=== PATIENT | female | born 1990 | race Caucasian/White ===

== ENCOUNTER 2021-09-22 09:17 | Outpatient (CLI) | payer OTHER, SELFPAY ==
--- NOTE | 2021-09-22 | ECHO_ITS ---
Patient Info Name: Bebe Hull Age: 31 years : 1990 Gender: Female Ht: 63 in Wt: 208 lbs BSA: 2.09 m2 HR: 102 bpm BP: 132 / 103 mmHg Heart Rhythm: Sinus Rhythm Exam Date: 09/22/2021 10:17 AM Exam Location: [facility] Patient Status: Outpatient Admit Date: 09/22/2021 Staff Ordering Physician: Samantha López MD Parachute Crown Sewer: Oliver Genao RDCS, RT Attending Provider: Samantha López MD Referring Physician: Rene DEL CID; Exam Type: CA echo doppler color flow Study Info Indications I49.8 - Other specified cardiac arrhythmias Complete two-dimensional, color flow and Doppler transthoracic echocardiogram is performed. Strain analysis performed. Summary 1. Complete two-dimensional, color flow and Doppler transthoracic echocardiogram is performed. 2. Left ventricular chamber dimension is normal. 3. Left ventricular systolic function is normal, estimated at 65-70%. 4. There is no increased left ventricular wall thickness. 5. The left ventricular diastolic function is abnormal. 6. Global longitudinal strain is normal at -19 %. 7. There is no aortic valve stenosis. 8. There is no mitral valve regurgitation. Left Ventricle Left ventricular chamber dimension is normal. Left ventricular systolic function is normal, estimated at 65-70%. There is no increased left ventricular wall thickness. The left ventricular diastolic function is abnormal. Global longitudinal strain is normal at -19 %. Right Ventricle Right ventricular chamber dimension is normal. Right ventricular systolic function is normal. Left Atria Left atrial chamber dimension is normal. Right Atria Right atrial chamber dimension is normal. Aortic Valve The aortic valve is probable trileaflet. There is no aortic valve stenosis. There is no aortic valve regurgitation. Pulmonic Valve The pulmonic valve is not well visualized. Mitral Valve The mitral valve has normal leaflets. There is no mitral valve regurgitation. Tricuspid Valve The tricuspid valve leaflets are normal. There is trace tricuspid valve regurgitation. Unable to assess PA systolic pressure due to poor spectral resolution of tricuspid regurgitant jet velocity. Pericardium/Pleural The pericardium appears normal. There is no pericardial effusion. Inferior Vena Cava Normal inferior vena cava with >50% collapse upon inspiration consistent with normal right atrial pressure, 5 mmHg. Aorta The aortic root size at the sinus of Valsalva is normal. Left Ventricular Outflow Tract Name Value Normal LVOT 2D LVOT Diameter 2.1 cm LVOT Doppler LVOT Peak Gradient 3 mmHg LVOT Mean Gradient 2 mmHg LVOT VTI 15 cm LVOT VTI/AV VTI Ratio 0.9 LVOT Stroke Volume 54 ml LVOT CO 6.0 l/min LVOT CI 2.9 l/min/m2 Mitral Valve Name Value N
--- NOTE | 2021-09-22 | ECG_ITS ---
Measurements Intervals [place] Rate: 89 P: 36 WV: 158 QRS: 57 QRSD: 82 T: 5 QT: 330 QTc: 402 Interpretive Statements SINUS RHYTHM NONSPECIFIC T-WAVE ABNORMALITY BORDERLINE ECG NO PREVIOUS ECG AVAILABLE FOR COMPARISON Electronically Signed On 09-23-2021 13:15:02 CDT by Juan Pablo Carrasco M.D.
== END 2021-09-22 09:18 | disposition home or self-care (01) ==
PROVIDERS: PCP Internal Medicine; Visit Provider Obstetrics & Gynecology
DX: I49.9 Cardiac arrhythmia, unspecified (principal); R94.31 Abnormal electrocardiogram [ECG] [EKG]
CPT/HCPCS: 93005; 93306

== ENCOUNTER 2021-12-12 05:49 | Inpatient (IN) | payer BC, SELFPAY ==
--- NOTE | 2021-11-29 15:14 | PC.NURSE ---
11/[address] Lynch spoke with pt stating he has reviewed her previous echo. No concerns for epidural placement noted.
[2021-12-12] VITALS (25 sets, daily range): BP systolic 129–153; BP diastolic 68–100; PULSE 76–105; RESP 16–18; TEMP 36.6–37.4; BMI 38.2
--- OUTSIDE RECORDS SUMMARY | 2021-12-12 05:54 | XMS_ITS | Encounter Summary ---
:1990 Author Care Team Providers Name Role Phone Aydin Lopez MD Primary Care Provider [phone] Reason for Visit None recorded. Assessment and Plan 1. Chronic hypertension complicating AN D/OR reason for care during ? non-stress test Discussion Note: None recorded.Patient educational handouts: No information available. Plan of Care Reminders Provider Appointments Nst 12/19/2021 8:30AM Nst, , EQUIP ? Ob Routine 12/19/2021 9:45AM Samantha López MD ? U/S OB BPP 12/19/2021 9:00AM Ultrasound, TECH ? [facility]-est on or around 06/28/2022 Terrie Betts CNM Lab None recorded. ? ? Referral None recorded. ? ? Procedures None recorded. ? ? Surgeries None recorded. ? ? Imaging Non-stress Test 11/21/2021 [place] Medications Name Start Date ? ? ondansetron 4 mg disintegrating tablet ? DISSOLVE 1 TABLET ON THE TONGUE EVERY 8 HOURS Vitamin ? Tylenol ? Medications Administered None recorded. Vitals None recorded. Results Lab Results None recorded. Allergies Code Code System Name Reaction Severity Onset 5987340 RxNorm Macadamia Nut Oil Anaphylaxis Mild to Moderate ? 367880 RxNorm Peanut Anaphylaxis Mild to Moderate ? NKDA ? ? ? Problems Name Status Onset Date Source ? Active 07/27/2021 ? Cardiac Arrhythmia Active ? ? Chronic Hypertension in Obstetric Context Active ? ? Procedures Date Name Performed by ? 07/28/2012 [place]
--- OUTSIDE RECORDS SUMMARY | 2021-12-12 05:54 | XMS_ITS | Encounter Summary ---
:1990 Author Care Team Providers Name Role Phone Aydin Lopez MD Primary Care Provider [phone] Reason for Visit None recorded. Assessment and Plan 1. Chronic hypertension complicating AN D/OR reason for care during ? US, obstetric, follow-up ? US, obstetric, biophysical profile + non-stress test Discussion Note: None recorded.Patient educational handouts: No information available. Plan of Care Reminders Provider Appointments Nst 12/19/2021 8:30AM Nst, , EQUIP ? Ob Routine 12/19/2021 9:45AM Samantha López MD ? U/S OB BPP 12/19/2021 9:00AM Ultrasound, TECH ? [facility]-est on or around Terrie Betts CNM 06/28/2022 Lab None recorded. ? ? Referral None recorded. ? ? Procedures None recorded. ? ? Surgeries None recorded. ? ? Imaging US, Obstetric, Follow-up 11/21/2021 [place] ? US, Obstetric, 11/21/2021 [place] Biophysical Profile + Non-stress Test Medications Name Start Date ? ? ondansetron 4 mg disintegrating tablet ? DISSOLVE 1 TABLET ON THE TONGUE EVERY 8 HOURS Vitamin ? Tylenol ? Medications Administered None recorded. Vitals None recorded. Results Lab Results None recorded. Allergies Code Code System Name Reaction Severity Onset 0291133 RxNorm Macadamia Nut Oil Anaphylaxis Mild to Moderate ? 704884 RxNorm Peanut Anaphylaxis Mild to Moderate ? NKDA ? ? ? Problems Name Status Onset Date Source ?
--- OUTSIDE RECORDS SUMMARY | 2021-12-12 05:54 | XMS_ITS | Encounter Summary ---
:1990 Author Care Team Providers Name Role Phone Aydin Lopez MD Primary Care Provider [phone] Reason for Visit OB visit Assessment and Plan 1. Chronic hypertension in obstetric co ntext Discussion Note: None recorded.Patient educational handouts: No [...] ? Surgeries None recorded. ? ? Imaging None recorded. ? ? Medications Name Start Date ? ? ondansetron 4 mg disintegrating tablet ? DISSOLVE 1 TABLET ON THE TONGUE EVERY 8 HOURS Vitamin ? Tylenol ? Medications Administered None recorded. Vitals Height Weight BMI Blood Pressure 5 ft 3 in 214 lbs 37.9 kg/m2 138/86 mm[Hg] Results Lab Results None recorded. Allergies Code Code System Name Reaction Severity Onset 0169050 RxNorm Macadamia Nut Oil Anaphylaxis Mild to Moderate ? 147973 RxNorm Peanut Anaphylaxis Mild to Moderate ? NKDA ? ? ? Problems Name Status Onset Date Source ? Active 07/27/2021 ? Cardiac Arrhythmia Active ? ? Chronic Hypertension in Obstetric Context Active ? ? Procedures Date Name Performed by ? 07/28/2012 [facility]
--- OUTSIDE RECORDS SUMMARY | 2021-12-12 05:54 | XMS_ITS | Encounter Summary ---
:1990 Author Care Team Providers Name Role Phone Aydin Lopez MD Primary Care Provider [phone] Reason for Visit OB visit Assessment and [...] BMI Blood Pressure 5 ft 3 in 212 lbs 37.6 kg/m2 137/84 mm[Hg] Results Lab Results None recorded. Allergies Code Code System Name Reaction Severity Onset 7763386 RxNorm Macadamia Nut Oil Anaphylaxis Mild to Moderate ? 336789 RxNorm Peanut Anaphylaxis Mild to Moderate ? NKDA ? ? ? Problems Name Status Onset Date Source ? Active 07/27/2021 ? Cardiac Arrhythmia Active ? ? Chronic Hypertension in Obstetric Context Active ? ? Procedures Date Name Performed by ? 07/28/2012 [facility]
--- OUTSIDE RECORDS SUMMARY | 2021-12-12 05:54 | XMS_ITS ---
:1990 Author Care Team Providers Name Role Phone SHANA MOORE MD Primary Care Provider [phone] Allergies Code Code System Name Reaction Severity Status Onset 1495642 RxNorm Macadamia Nut Oil Anaphylaxis Mild to Moderate Act maxim ? 142933 RxNorm Peanut Anaphylaxis Mild to Moderate Active ? NKDA ? Medications Name Status Start Date Stop Date ? ? ondansetron 4 mg disintegrating tablet Active ? Not available DISSOLVE 1 TABLET ON THE TONGUE EVERY 8 HOURS Vitamin Active ? Not available Tylenol Active ? Not available Problems Name Status Onset Date Source ? Active 07/27/2021 ? Cardiac Arrhythmia Active ? ? Chronic Hypertension in Obstetric Context Active ? ? Procedures Date Name Performed by ? 07/28/2012 [facility] Information not avai lable 02/12/2000 Unlisted Px Foot/toes Information not av ailable 02/12/1996 Tonsilectomy/adenoids Information not av ailable 02/11/1993 Removal of Silastic Tubes from Ear Infor mation not available 06/28/2021 US, Obstetric, Limited [place] [address] [place] [address] ([address]) 07/27/2021 , Obstetric, 2Nd or 3Rd Trimester [facility] [address] [place] [address] (Work Place) 07/27/2021 , Obstetric, Transvaginal [place] [address] [place] [address] (Work Tete
--- OUTSIDE RECORDS SUMMARY | 2021-12-12 05:54 | XMS_ITS | Encounter Summary ---
:1990 Author Care Team Providers Name Role Phone Aydin Lopez MD Primary Care Provider [phone] Reason for Visit None recorded. Assessment and Plan 1. Chronic hypertension complicating AN D/OR reason for care during ? US, obstetric, biophysical profile + non-stress [...] None recorded. ? ? Imaging US, Obstetric, 12/05/2021 [place] Biophysical Profile + Non-stress Test Medications Name Start Date ? ? ondansetron 4 mg disintegrating tablet ? DISSOLVE 1 TABLET ON THE TONGUE EVERY 8 HOURS Vitamin ? Tylenol ? Medications Administered None recorded. Vitals None recorded. Results Lab Results None recorded. Allergies Code Code System Name Reaction Severity Onset 8574102 RxNorm Macadamia Nut Oil Anaphylaxis Mild to Moderate ? 923833 RxNorm Peanut Anaphylaxis Mild to Moderate ? NKDA ? ? ? Problems Name Status Onset Date Source ? Active 07/27/2021 ? Cardiac Arrhythmia Active ? ?
--- OUTSIDE RECORDS SUMMARY | 2021-12-12 05:54 | XMS_ITS | Encounter Summary ---
:1990 Author Care Team Providers Name Role Phone Aydin Lopez MD Primary Care Provider [phone] Reason for Visit None recorded. Assessment and [...] ? Well Woman-est on or around Terrie Btets CNM 06/28/2022 Lab None recorded. ? ? Referral None recorded. ? ? Procedures None recorded. ? ? Surgeries None recorded. ? ? Imaging US, Obstetric, 11/14/2021 [place] Biophysical Profile + Non-stress Test Medications Name Start Date ? ? ondansetron 4 mg disintegrating tablet ? DISSOLVE 1 TABLET ON THE TONGUE EVERY 8 HOURS Vitamin ? Tylenol ? Medications Administered None recorded. Vitals None recorded. Results Lab Results None recorded. Allergies Code Code System Name Reaction Severity Onset 6547135 RxNorm Macadamia Nut Oil Anaphylaxis Mild to Moderate ? 940097 RxNorm Peanut Anaphylaxis Mild to Moderate ? NKDA ? ? ? Problems Name Status Onset Date Source ? Active 07/27/2021 ? Cardiac Arrhythmia Active ? ?
--- OUTSIDE RECORDS SUMMARY | 2021-12-12 05:54 | XMS_ITS | Encounter Summary ---
:1990 Author Care Team Providers Name Role Phone Aydin Lopez MD Primary Care Provider [phone] Reason for Visit None recorded. Assessment and [...] None recorded. ? ? Imaging US, Obstetric, 10/31/2021 [place] Biophysical Profile + Non-stress Test Medications Name Start Date ? ? ondansetron 4 mg disintegrating tablet ? DISSOLVE 1 TABLET ON THE TONGUE EVERY 8 HOURS Vitamin ? Tylenol ? Medications Administered None recorded. Vitals None recorded. Results Lab Results None recorded. Allergies Code Code System Name Reaction Severity Onset 0276488 RxNorm Macadamia Nut Oil Anaphylaxis Mild to Moderate ? 681302 RxNorm Peanut Anaphylaxis Mild to Moderate ? NKDA ? ? ? Problems Name Status Onset Date Source ? Active 07/27/2021 ? Cardiac Arrhythmia Active ? ?
--- OUTSIDE RECORDS SUMMARY | 2021-12-12 05:54 | XMS_ITS | Encounter Summary ---
:1990 Author Care Team Providers Name Role Phone Aydin Lopez MD Primary Care Provider [phone] Reason for Visit OB visit Assessment and Plan 1. Chronic hypertension in obstetric co ntext 2. Cardiac arrhythmia Discussion Note: None recorded.Patient educational handouts: No [...] BMI Blood Pressure 5 ft 3 in 211 lbs 37.4 kg/m2 135/83 mm[Hg] Results Lab Results None recorded. Allergies Code Code System Name Reaction Severity Onset 5394367 RxNorm Macadamia Nut Oil Anaphylaxis Mild to Moderate ? 241041 RxNorm Peanut Anaphylaxis Mild to Moderate ? NKDA ? ? ? Problems Name Status Onset Date Source ? Active 07/27/2021 ? Cardiac Arrhythmia Active ? ? Chronic Hypertension in Obstetric Context Active ? ? Procedures Date Name Performed by ?
--- OUTSIDE RECORDS SUMMARY | 2021-12-12 05:54 | XMS_ITS | Encounter Summary ---
:1990 Author Care Team Providers Name Role Phone Aydin Lopez MD Primary Care Provider [phone] Reason for Visit None recorded. Assessment and [...] recorded. ? ? Imaging US, Obstetric, Follow-up 11/07/2021 [place] ? US, Obstetric, 11/07/2021 [place] Biophysical Profile + Non-stress Test Medications Name Start Date ? ? ondansetron 4 mg disintegrating tablet ? DISSOLVE 1 TABLET ON THE TONGUE EVERY 8 HOURS Vitamin ? Tylenol ? Medications Administered None recorded. Vitals None recorded. Results Lab Results None recorded. Allergies Code Code System Name Reaction Severity Onset 2218668 RxNorm Macadamia Nut Oil Anaphylaxis Mild to Moderate ? 926794 RxNorm Peanut Anaphylaxis Mild to Moderate ? NKDA ? ? ? Problems Name Status Onset Date Source ?
--- OUTSIDE RECORDS SUMMARY | 2021-12-12 05:54 | XMS_ITS | Encounter Summary ---
:1990 Author Care Team Providers Name Role Phone Aydin Lopez MD Primary Care Provider [phone] Reason for Visit None recorded. Assessment and [...] None recorded. ? ? Imaging US, Obstetric, 11/28/2021 [place] Biophysical Profile + Non-stress Test Medications Name Start Date ? ? ondansetron 4 mg disintegrating tablet ? DISSOLVE 1 TABLET ON THE TONGUE EVERY 8 HOURS Vitamin ? Tylenol ? Medications Administered None recorded. Vitals None recorded. Results Lab Results None recorded. Allergies Code Code System Name Reaction Severity Onset 9150202 RxNorm Macadamia Nut Oil Anaphylaxis Mild to Moderate ? 681538 RxNorm Peanut Anaphylaxis Mild to Moderate ? NKDA ? ? ? Problems Name Status Onset Date Source ? Active 07/27/2021 ? Cardiac Arrhythmia Active ? ?
--- OUTSIDE RECORDS SUMMARY | 2021-12-12 05:54 | XMS_ITS | Encounter Summary ---
:1990 Author Care Team Providers Name Role Phone Aydin Lopez MD Primary Care Provider [phone] Reason for Visit None recorded. Assessment and [...] None recorded. ? ? Imaging Non-stress Test 12/05/2021 [place] Medications Name Start Date ? ? ondansetron 4 mg disintegrating tablet ? DISSOLVE 1 TABLET ON THE TONGUE EVERY 8 HOURS Vitamin ? Tylenol ? Medications Administered None recorded. Vitals None recorded. Results Lab Results None recorded. Allergies Code Code System Name Reaction Severity Onset 5430046 RxNorm Macadamia Nut Oil Anaphylaxis Mild to Moderate ? 554959 RxNorm Peanut Anaphylaxis Mild to Moderate ? NKDA ? ? ? Problems Name Status Onset Date Source ? Active 07/27/2021 ? Cardiac Arrhythmia Active ? ? Chronic Hypertension in Obstetric Context Active ? ? Procedures Date Name Performed by ? 07/28/2012 [place]
--- OUTSIDE RECORDS SUMMARY | 2021-12-12 05:54 | XMS_ITS | Encounter Summary ---
:1990 Author Care Team Providers Name Role Phone Aydin Lopez MD Primary Care Provider [phone] Reason for Visit OB visit Assessment and [...] ft 3 in 212 lbs 37.6 kg/m2 134/84 mm[Hg] Results Lab Results None recorded. Allergies Code Code System Name Reaction Severity Onset 8597636 RxNorm Macadamia Nut Oil Anaphylaxis Mild to Moderate ? 182194 RxNorm Peanut Anaphylaxis Mild to Moderate ? NKDA ? ? ? Problems Name Status Onset Date Source ? Active 07/27/2021 ? Cardiac Arrhythmia Active ? ? Chronic Hypertension in Obstetric Context Active ? ? Procedures Date Name Performed by ? 07/28/2012 [facility]
--- OUTSIDE RECORDS SUMMARY | 2021-12-12 05:54 | XMS_ITS | Encounter Summary ---
:1990 Author Care Team Providers Name Role Phone Aydin Lopez MD Primary Care Provider [phone] Reason for Visit None recorded. Assessment and [...] None recorded. ? ? Imaging Non-stress Test 11/28/2021 [place] Medications Name Start Date ? ? ondansetron 4 mg disintegrating tablet ? DISSOLVE 1 TABLET ON THE TONGUE EVERY 8 HOURS Vitamin ? Tylenol ? Medications Administered None recorded. Vitals None recorded. Results Lab Results None recorded. Allergies Code Code System Name Reaction Severity Onset 7976939 RxNorm Macadamia Nut Oil Anaphylaxis Mild to Moderate ? 718270 RxNorm Peanut Anaphylaxis Mild to Moderate ? NKDA ? ? ? Problems Name Status Onset Date Source ? Active 07/27/2021 ? Cardiac Arrhythmia Active ? ? Chronic Hypertension in Obstetric Context Active ? ? Procedures Date Name Performed by ? 07/28/2012 [place]
--- OUTSIDE RECORDS SUMMARY | 2021-12-12 05:54 | XMS_ITS | Encounter Summary ---
:1990 Author Care Team Providers Name Role Phone Aydin Lopez MD Primary Care Provider [phone] Reason for Visit None recorded. Assessment and [...] None recorded. ? ? Imaging Non-stress Test 10/31/2021 [place] Medications Name Start Date ? ? ondansetron 4 mg disintegrating tablet ? DISSOLVE 1 TABLET ON THE TONGUE EVERY 8 HOURS Vitamin ? Tylenol ? Medications Administered None recorded. Vitals None recorded. Results Lab Results None recorded. Allergies Code Code System Name Reaction Severity Onset 7260563 RxNorm Macadamia Nut Oil Anaphylaxis Mild to Moderate ? 868708 RxNorm Peanut Anaphylaxis Mild to Moderate ? NKDA ? ? ? Problems Name Status Onset Date Source ? Active 07/27/2021 ? Cardiac Arrhythmia Active ? ? Chronic Hypertension in Obstetric Context Active ? ? Procedures Date Name Performed by ? 07/28/2012 [place]
--- OUTSIDE RECORDS SUMMARY | 2021-12-12 05:54 | XMS_ITS | Encounter Summary ---
:1990 Author Care Team Providers Name Role Phone Aydin Lopez MD Primary Care Provider [phone] Reason for Visit OB visit Assessment and [...] BMI Blood Pressure 5 ft 3 in 215 lbs 38.1 kg/m2 139/88 mm[Hg] Results Lab Results None recorded. Allergies Code Code System Name Reaction Severity Onset 9346153 RxNorm Macadamia Nut Oil Anaphylaxis Mild to Moderate ? 335608 RxNorm Peanut Anaphylaxis Mild to Moderate ? NKDA ? ? ? Problems Name Status Onset Date Source ? Active 07/27/2021 ? Cardiac Arrhythmia Active ? ? Chronic Hypertension in Obstetric Context Active ? ? Procedures Date Name Performed by ? 07/28/2012 [facility]
--- OUTSIDE RECORDS SUMMARY | 2021-12-12 05:54 | XMS_ITS | Encounter Summary ---
:1990 Author Care Team Providers Name Role Phone Aydin Lopez MD Primary Care Provider [phone] Reason for Visit OB visit Assessment and [...] BMI Blood Pressure 5 ft 3 in 217 lbs 38.4 kg/m2 141/88 mm[Hg] Results Lab Results None recorded. Allergies Code Code System Name Reaction Severity Onset 8109930 RxNorm Macadamia Nut Oil Anaphylaxis Mild to Moderate ? 491645 RxNorm Peanut Anaphylaxis Mild to Moderate ? NKDA ? ? ? Problems Name Status Onset Date Source ? Active 07/27/2021 ? Cardiac Arrhythmia Active ? ? Chronic Hypertension in Obstetric Context Active ? ? Procedures Date Name Performed by ? 07/28/2012 [facility]
--- OUTSIDE RECORDS SUMMARY | 2021-12-12 05:54 | XMS_ITS | Encounter Summary ---
:1990 Author Care Team Providers Name Role Phone Aydin Lopez MD Primary Care Provider [phone] Reason for Visit OB visit Assessment and [...] ft 3 in 211 lbs 37.4 kg/m2 137/82 mm[Hg] Results Lab Results None recorded. Allergies Code Code System Name Reaction Severity Onset 7101567 RxNorm Macadamia Nut Oil Anaphylaxis Mild to Moderate ? 247757 RxNorm Peanut Anaphylaxis Mild to Moderate ? NKDA ? ? ? Problems Name Status Onset Date Source ? Active 07/27/2021 ? Cardiac Arrhythmia Active ? ? Chronic Hypertension in Obstetric Context Active ? ? Procedures Date Name Performed by ? 07/28/2012 [facility]
--- OUTSIDE RECORDS SUMMARY | 2021-12-12 05:54 | XMS_ITS | Encounter Summary ---
:1990 Author Care Team Providers Name Role Phone Aydin Lopez MD Primary Care Provider [phone] Reason for Visit None recorded. Assessment and [...] None recorded. ? ? Imaging Non-stress Test 11/07/2021 [place] Medications Name Start Date ? ? ondansetron 4 mg disintegrating tablet ? DISSOLVE 1 TABLET ON THE TONGUE EVERY 8 HOURS Vitamin ? Tylenol ? Medications Administered None recorded. Vitals None recorded. Results Lab Results None recorded. Allergies Code Code System Name Reaction Severity Onset 5050771 RxNorm Macadamia Nut Oil Anaphylaxis Mild to Moderate ? 686583 RxNorm Peanut Anaphylaxis Mild to Moderate ? NKDA ? ? ? Problems Name Status Onset Date Source ? Active 07/27/2021 ? Cardiac Arrhythmia Active ? ? Chronic Hypertension in Obstetric Context Active ? ? Procedures Date Name Performed by ? 07/28/2012 [facility]
--- OUTSIDE RECORDS SUMMARY | 2021-12-12 05:54 | XMS_ITS | Encounter Summary ---
:1990 Author Care Team Providers Name Role Phone Aydin Lopez MD Primary Care Provider [phone] Reason for Visit None recorded. Assessment and [...] None recorded. ? ? Imaging Non-stress Test 11/14/2021 [place] Medications Name Start Date ? ? ondansetron 4 mg disintegrating tablet ? DISSOLVE 1 TABLET ON THE TONGUE EVERY 8 HOURS Vitamin ? Tylenol ? Medications Administered None recorded. Vitals None recorded. Results Lab Results None recorded. Allergies Code Code System Name Reaction Severity Onset 8516750 RxNorm Macadamia Nut Oil Anaphylaxis Mild to Moderate ? 376099 RxNorm Peanut Anaphylaxis Mild to Moderate ? NKDA ? ? ? Problems Name Status Onset Date Source ? Active 07/27/2021 ? Cardiac Arrhythmia Active ? ? Chronic Hypertension in Obstetric Context Active ? ? Procedures Date Name Performed by ? 07/28/2012 [place]
--- OUTSIDE RECORDS SUMMARY | 2021-12-12 05:55 | XMS_ITS | Encounter Summary ---
:1990 Author Care Team Providers Name Role Phone Aydin Lopez MD Primary Care Provider [phone] Reason for Visit OB visit Assessment and Plan 1. Routine care 2. Elevated blood-pressure reading with out diagnosis of hypertension Discussion Note: None recorded.Patient educational handouts: No [...] BMI Blood Pressure 5 ft 3 in 210 lbs 37.2 kg/m2 (1) 160/90 mm[H g] (2) 142/82 mm[Hg ] Results Lab Results None recorded. Allergies Code Code System Name Reaction Severity Onset 6475986 RxNorm Macadamia Nut Oil Anaphylaxis Mild to Moderate ? 407565 RxNorm Peanut Anaphylaxis Mild to Moderate ? NKDA ? ? ? Problems Name Status Onset Date Source ? Active 07/27/2021 ? Cardiac Arrhythmia Active ? ? Chronic Hypertension in Obstetric Context Active ?
--- OUTSIDE RECORDS SUMMARY | 2021-12-12 05:55 | XMS_ITS | Encounter Summary ---
:1990 Author Care Team Providers Name Role Phone Aydin Lopez MD Primary Care Provider [phone] Reason for Visit None recorded. Assessment and [...] None recorded. ? ? Imaging Non-stress Test 10/24/2021 [place] Medications Name Start Date ? ? ondansetron 4 mg disintegrating tablet ? DISSOLVE 1 TABLET ON THE TONGUE EVERY 8 HOURS Vitamin ? Tylenol ? Medications Administered None recorded. Vitals None recorded. Results Lab Results None recorded. Allergies Code Code System Name Reaction Severity Onset 2253441 RxNorm Macadamia Nut Oil Anaphylaxis Mild to Moderate ? 065785 RxNorm Peanut Anaphylaxis Mild to Moderate ? NKDA ? ? ? Problems Name Status Onset Date Source ? Active 07/27/2021 ? Cardiac Arrhythmia Active ? ? Chronic Hypertension in Obstetric Context Active ? ? Procedures Date Name Performed by ? 07/28/2012 [place]
--- OUTSIDE RECORDS SUMMARY | 2021-12-12 05:55 | XMS_ITS | Encounter Summary ---
:1990 Author Care Team Providers Name Role Phone Aydin Lopez MD Primary Care Provider [phone] Reason for Visit OB visit Assessment and [...] ft 3 in 211 lbs 37.4 kg/m2 (1) 150/70 mm[H g] (2) 142/78 mm[Hg ] Results Lab Results None recorded. Allergies Code Code System Name Reaction Severity Onset 2500650 RxNorm Macadamia Nut Oil Anaphylaxis Mild to Moderate ? 255257 RxNorm Peanut Anaphylaxis Mild to Moderate ? NKDA ? ? ? Problems Name Status Onset Date Source ? Active 07/27/2021 ? Cardiac Arrhythmia Active ? ? Chronic Hypertension in Obstetric Context Active ? ? Procedures Date Name
--- OUTSIDE RECORDS SUMMARY | 2021-12-12 05:55 | XMS_ITS ---
:1990 Author Care Team Providers Name Role Phone ALIYA JACINTO MD Primary Care Provider [phone] Allergies Code Code System Name Reaction Severity Status Onset 906962 RxNorm Trileptal Hives ? Active ? Medications Name Status Start Date Stop Date ? ? lorazepam 0.5 mg tablet Active ? Not avai lable oxcarbazepine 300 mg tablet Active ? Not available prednisone 20 mg tablet Active ? Not avai lable Take 40 mg PO everyday for 5 days venlafaxine ER 150 mg capsule,extended release 24 hr Active ? Not available venlafaxine ER 75 mg capsule,extended release 24 hr Active ? Not available Problems None recorded. Procedures Notes: none Results Lab Results None recorded. Past Encounters None recorded. Social History Tobacco Smoking Status Never Smoker Vaccine List None recorded. Plan of Care Reminders Provider Appointments None recorded. ? ? Lab None recorded. ? ? Referral None recorded. ? ? Procedures None recorded. ? ? Surgeries None recorded. ? ? Imaging None recorded. ? ? Vitals Height Weight BMI Blood Pressure 5 ft 3 in 207 lbs 36.7 kg/m2 150/97 mm[Hg]
--- OUTSIDE RECORDS SUMMARY | 2021-12-12 05:55 | XMS_ITS | Encounter Summary ---
:1990 Author Care Team Providers Name Role Phone Aydin Lopez MD Primary Care Provider [phone] Reason for Visit None recorded. Assessment and [...] recorded. ? ? Imaging US, Obstetric, Follow-up 10/24/2021 [place] ? US, Obstetric, 10/24/2021 [place] Biophysical Profile + Non-stress Test Medications Name Start Date ? ? ondansetron 4 mg disintegrating tablet ? DISSOLVE 1 TABLET ON THE TONGUE EVERY 8 HOURS Vitamin ? Tylenol ? Medications Administered None recorded. Vitals None recorded. Results Lab Results None recorded. Allergies Code Code System Name Reaction Severity Onset 4931184 RxNorm Macadamia Nut Oil Anaphylaxis Mild to Moderate ? 492633 RxNorm Peanut Anaphylaxis Mild to Moderate ? NKDA ? ? ? Problems Name Status Onset Date Source ?
[2021-12-12 07:13] LABS: Basophils Absolute Auto 0.1 K/mm3 (0.0-0.1); Basophils Percent Auto 0.6 % (0.2-1.2); Eosinophils Absolute Auto 0.1 K/mm3 (0-0.3); Eosinophils Percent Auto 0.6 % (0-4.4); Hematocrit 33.5 % (37.0-47.0); Hemoglobin 11.5 g/dL (12.0-15.0); Immature Granulocyte Absolute 0.16 K/mm3 (0.00-0.031); Immature Granulocyte Percent A 1.5 % (0-0.5); Lymphocytes Absolute Auto 2.81 K/mm3 (0.9-3.2); Lymphocytes Percent Auto 25.7 % (18.3-44.2); Mean Corpuscular HGB Conc 34.3 g/dl (32-36); Mean Corpuscular Hemoglobin 29.9 pg (26-34); Mean Platelet Volume 13.7 fl (7.4-10.4); Monocytes Absolute Auto 0.7 K/mm3 (0.1-0.6); Monocytes Percent Auto 6.3 % (2.6-8.5); Neutrophils Absolute Auto 7.1 K/mm3 (1.3-6.7); Neutrophils Percent Auto 65.3 % (45.5-73.1); Platelet Count Result 152 k/mm3 (150-375); Red Blood Count 3.85 M/mm3 (4.2-5.4); White Blood Count 10.9 K/mm3 (4.5-10.0)
[2021-12-12 07:21] LABS: Alanine Aminotransferase 21 U/L (6-35); Albumin Level 3.5 g/dL (3.5-5.1); Alkaline Phosphatase 170 U/L (38-126); Anion Gap 10 mmol/L (8-16); Aspartate Amino Transferase 24 U/L (14-36); Bilirubin,Total 0.3 mg/dL (0.2-1.3); Blood Urea Nitrogen 3 mg/dL (7-17); Calcium 8.6 mg/dL (8.4-10.2); Carbon Dioxide 24 mmol/L (22-30); Chloride 105 mmol/L (98-107); Estimated Glomerular Filt Rate > 60; Glucose 86 mg/dL (65-110); Potassium 3.2 mmol/L (3.4-5.0); Sodium 139 mmol/L (137-145); Uric Acid 4.1 mg/dL (2.5-7.5)
[2021-12-12] MEDS: DINOPROSTONE 10 MG VAG INSERT VAGINAL (07:21)
--- NOTE | 2021-12-12 07:39 | P.HP_ITS ---
H&P: HPI History of Present Illness Date/Time: 12/12/21 07:39 Chief Complaint: induction of labor Narrative: Bebe is a 31yo G1 at 38.6 for IOL for cHTN, no meds. Also has arrhythmia/ectopic pacemaker cells, has seen cardiology and they did not recommend any interventions or additional followup. BPs have been great this . Some anxiety also. GBS neg. Cervidil just placed. GBS neg. Review of Systems Review of Systems: All systems reviewed & are unremarkable except as noted in HPI and below [facility] Family History Family History (Updated 11/29/21 @ 14:45 by Nelia Casanova RN) Father Hypertension Diabetes mellitus Grandparent Diabetes mellitus Social History Social History Substance use: never Spiritual care concerns: No Meds Home Medications and Allergies Home Medications Medication Instructions Recorded Confirmed Type aspirin 81 mg tablet 162 mg PO DAILY 11/29/21 11/29/21 History prenat.vits,stephanie,[id number] 1 tablet PO HS 11/29/21 11/29/21 History Allergies Allergy/AdvReac Type Severity Reaction Status Date / Time latex Allergy Rash Verified 11/29/21 15:55 macadamia nut oil Allergy Swelling Verified 11/29/21 14:41 of Lip/Tongue/Throat peanut Allergy Swelling Verified 11/29/21 14:41 of Lip/Tongue/Throat Vital Signs Vital Signs - 24 hr 12/12/21 07:02 12/12/21 07:16 12/12/21 07:31 Pulse Rate 105 H 103 H 88 Blood Pressure 147/100 H 140/88 135/82 Exam Const: General: no acute distress Resp: Effort & Inspection: normal respiratory effort Auscultation: clear to auscultation bilaterally Cardio: Rate: regular rate Rhythm: regular rhythm GI: GI Palp: Yes Soft to palpation Extrem: General: normal to inspection H&P: Results Labs Labs: Short CBC 12/12/21 Range/Units 07:05 WBC 10.9 H (4.5-10.0) K/mm3 Hgb 11.5 L (12.0-15.0) g/dL Hct 33.5 L (37.0-47.0) % Plt Count 152 (150-375) k/mm3 BMP 12/12/21 07:05 Sodium 139 Potassium 3.2 L Chloride 105 Carbon Dioxide 24 BUN 3 L Creatinine 0.60 L Glucose 86 Calcium 8.6 Liver Function 12/12/21 Range/Units 07:05 Total Bilirubin 0.3 (0.2-1.3) mg/dL AST 24 (14-36) U/L ALT 21 (6-35) U/L Alkaline Phosphatase 170 H (38-126) U/L Albumin 3.5 (3.5-5.1) g/dL Assessment and Plan Assessment and plan (1) Chronic hypertension affecting : Code(s): O10.919 - Unspecified pre-existing hypertension complicating , unspecified trimester Status: Acute (2) Encounter for induction of labor: Code(s): Z34.90 - Encounter for supervision of normal , unspecified, unspecified trimester Status: Acute Plan cervidil then pitocin GBS neg BPS stable- no meds normal PIH labs FHT category 1
--- NOTE | 2021-12-12 07:45 | LDADM ---
This patient, Bebe Hull, was admitted to Labor/Delivery/Recovery 104 on 12/12/21 at 05:49. Plans for labor, pain management and were discussed with patient. Patient/family oriented to hospital policies and general routines including ID bracelet, bed and alarms, visiting hours, pain management, procedures, bathroom and other care routines, personal items, smoking policy, room service/diet and guest tray routines, security routines, and visiting hours. Patient/Family are encouraged to report perceived risks to care and to ask questions if they do not understand what they are told or what they should do. See OBIX for further documentation.
[2021-12-12 16:28] LABS: Rapid Plasma Reagin Non-Reactive (NonReactive)
--- NOTE | 2021-12-12 17:32 | WPDANESEPP ---
Anes - Eval Pre Procedure Procedure: Labor Epidural Date/Time: 12/12/21 17:32 Surgeon: Rene Preop Diagnosis: Abd pain with contractions Pre Op Diagnosis: IOL Patient Data Age: 31 Gender: F Height: 1.6 m Weight: 98 kg Last Vital Signs Temp 97.9 F 12/12/21 07:30 Pulse 91 12/12/21 13:19 BP 145/90 H 12/12/21 13:19 O2 Del Method Room Air 12/12/21 07:37 Allergies Allergy/AdvReac Type Severity Reaction Status Date / Time latex Allergy Rash Verified 11/29/21 15:55 macadamia nut oil Allergy Swelling Verified 11/29/21 14:41 of Lip/Tongue/Throat peanut Allergy Swelling Verified 11/29/21 14:41 of Lip/Tongue/Throat Home Medications Medication Instructions Recorded Confirmed Type aspirin 81 mg tablet 162 mg PO DAILY 11/29/21 11/29/21 History prenat.vits,stephanie,[id number] 1 tablet PO HS 11/29/21 11/29/21 History Laboratory Tests 12/12/21 12/12/21 12/12/21 07:05 07:05 07:05 WBC 10.9 K/mm3 H K/mm3 (4.5-10.0) RBC 3.85 M/mm3 L M/mm3 (4.2-5.4) Hgb 11.5 g/dL L g/dL (12.0-15.0) Hct 33.5 % L % (37.0-47.0) MCV 87.0 fl fl (80-100) MCH 29.9 pg pg (26-34) MCHC 34.3 g/dl g/dl (32-36) RDW 13.0 % % (11.5-14.5) Plt Count 152 k/mm3 k/mm3 (150-375) MPV 13.7 fl H fl (7.4-10.4) Immature Gran % (Auto) 1.5 % H % (0-0.5) Neut % (Auto) 65.3 % % (45.5-73.1) Lymph % (Auto) 25.7 % % (18.3-44.2) [place] % (Auto) 6.3 % % (2.6-8.5) Eos % (Auto) 0.6 % % (0-4.4) Baso % (Auto) 0.6 % % (0.2-1.2) Lymph # (Auto) 2.81 K/mm3 K/mm3 (0.9-3.2) [place] # (Auto) 0.7 K/mm3 H K/mm3 (0.1-0.6) Eos # (Auto) 0.1 K/mm3 K/mm3 (0-0.3) Baso # (Auto) 0.1 K/mm3 K/mm3 (0.0-0.1) Abs Immat Gran (auto) 0.16 K/mm3 H K/mm3 (0.00-0.031) Absolute Neuts (auto) 7.1 K/mm3 H K/mm3 (1.3-6.7) Absolute Nucleated RBC 0.0 K/mm3 K/mm3 (0.0-0.012) Nucleated RBC % 0.0 % % (0.0-0.2) % Immature Plt Fraction 21.0 % H % (0.9-11.2) Sodium Potassium Chloride Carbon Dioxide Anion Gap BUN Creatinine Estim Creat Clear Calc Estimated GFR Glucose Uric Acid Cancelled Calcium Total Bilirubin AST ALT Alkaline Phosphatase Total Protein Albumin RPR Non-reactive (NonReactive) Blood Type Antibody Screen 12/12/21 12/12/21 07:05 07:05 WBC RBC Hgb Hct MCV MCH MCHC RDW Plt Count MPV Immature Gran % (Auto) Neut % (Auto) Lymph % (Auto) [place] % (Auto) Eos % (Auto) Baso % (Auto) Lymph # (Auto) [place] # (Auto) Eos # (Auto) Baso # (Auto) Abs Immat Gran (auto) Absolute Neuts (auto) Absolute Nucleated RBC Nucleated RBC % % Immature Plt Fraction Sodium 139 mmol/L mmol/L (137-145) Potassium 3.2 mmol/L L mmol/L (3.4-5.0) Chloride 105 mmol/L mmol/L (98-107) Carbon Dioxide 24 mmol/L mmol/L (22-30) Anion Gap 10 mmol/L mmol/L (8-16) BUN 3 mg/dL L mg/dL (7-17) Creatinine 0.60 mg/dL L mg/dL (0.7-1.0) Estim Creat Clear Calc Not Reportable Estimated GFR > 60 (59 - ) Glucose 86 mg/dL mg/dL (65-110) Uric Acid 4.1 mg/dL mg/dL (2.5-7.5) Calcium 8.6 mg/dL mg/dL (8.4-10.2) Total Bilirubin 0.3 mg/dL mg/dL (0.2-1.3) AST 24 U/L U/L (14-36) ALT 21 U/L U/L (6-35) Alkaline Phosp
[2021-12-12] MEDS: LACTATED RINGERS 1,000 ML 125 ML IV CONT (20:04)
[2021-12-12] MEDS: miSOPROStol 25 MCG TABLET VAGINAL (20:55)
[2021-12-12] MEDS: ACETAMINOPHEN 500 MG TABLET 1000 MG PO (21:34)
[2021-12-13] VITALS (296 sets, daily range): BP systolic 82–167; BP diastolic 38–95; PULSE 58–147; TEMP 36.4–37.9; O2SAT 90–100
[2021-12-13] MEDS: OXYTOCIN 30 UNITS/NS 500 ML 30 UNITS/500 ML BAG IV CONT (01:40)
[2021-12-13] MEDS: LACTATED RINGERS 1,000 ML 125 ML IV CONT ×4 (01:40→23:24)
--- NOTE | 2021-12-13 07:33 | PM.OBPNLAB ---
Pain Control Date/time seen: 12/13/21 07:33 Comments: getting uncomfortable. Pelvic Exam Dilation (cm): 1 Effacement (%): 50 Amniotic membrane status: Ruptured Comments: AROM clear Contractions Contraction pattern: Irregular Contraction intensity: Moderate Status status: Category l Assessment and Plan Assessment: induction ongoing Plan: continuous present management
[2021-12-13] MEDS: ONDANSETRON INJ 4 MG/2 ML VIAL IV PUSH ×2 (14:27→21:10)
[2021-12-13] MEDS: PHENYLEPHRINE 1,000 MCG/10 ML SYRINGE 100 MCG IV PUSH ×3 (16:05→16:18)
[2021-12-13] MEDS: ACETAMINOPHEN 500 MG TABLET 1000 MG PO (20:34)
[2021-12-13] MEDS: AMPICILLIN 2 GM/NS 100 ML 2 GM/100 ML BAG IVPB (20:34)
[2021-12-14] VITALS (89 sets, daily range): BP systolic 113–154; BP diastolic 58–110; PULSE 55–269; RESP 18; TEMP 36.3–37.7; O2SAT 75–100
[2021-12-14] MEDS: LACTATED RINGERS 1,000 ML 125 ML IV CONT (00:47)
[2021-12-14] MEDS: AMPICILLIN 1 GM/NS 50 ML 1 GM/50 ML BAG IVPB ×6 (00:48→23:01)
[2021-12-14] MEDS: OXYTOCIN 30 UNITS/NS 500 ML 30 UNITS/500 ML BAG IV CONT (00:52)
[2021-12-14] MEDS: CALCIUM CARBONATE (TUMS) 500 MG (200 MG ELEMENTAL) PO (04:20)
--- NOTE | 2021-12-14 05:41 | PM.OBPRVD ---
OB - Delivery Note Procedure Delivery date: 12/14/21 Procedure: Events: Chronic Hypertension Induction method: AROM, Per Misoprostol Protocol, Per Pitocin Protocol and Per Cervidil Protocol Delivery monitor: External FHT and Internal Uterine Route of delivery: Laceration Description: Perineal - 2nd Degree Delivery repair: vicryl Specimen: No Quantitative Blood Loss (ml): 240 Anesthesia type: Epidural Disposition: Floor Narrative: With adequate expulsive efforts by the mother, the baby's head was delivered OA. The baby's anterior shoulder was delivered under the pubic symphysis without difficulty. The posterior shoulder and the rest of the baby delivered without difficulty. The was placed on the mothers chest and suctioned and stimulated. The cord was clamped and cut after 30 seconds. Mother and baby both stable. [place] Baby Date of : 12/14/21 Time of : 05:15 Weeks of gestation at delivery: 38 Infant gender: Male Weight (pounds): 6 Weight (ounces): 14 presentation: vertex Placenta delivery description: Spontaneous Cord Vessel Description: 3 Vessels, Nuchal Cord and Delayed Cord Clamping score one minute: 8 score five minutes: 9
[2021-12-14] MEDS: OXYTOCIN 30 UNITS/NS 500 ML 30 UNITS/500 ML BAG 125 UNITS IV CONT (05:43)
[2021-12-14] MEDS: IBUPROFEN 600 MG TABLET PO ×2 (07:53→18:50)
[2021-12-14] MEDS: WITCH HAZEL 40 PADS 1 PAD TOPICAL (08:03)
[2021-12-14] MEDS: BENZOCAINE 20% AER SPR (*SP) 56 GM CAN 1 SPRAY TOPICAL (08:03)
--- NOTE | 2021-12-14 11:56 | PC.NURSE ---
[id number] Introductions were made, then consulted with patient to assess needs related to after RN was called to the room. Mother led the conversation with her?plans to feed?her infant and the?experience so far. Resources provided for inpatient and outpatient services using a resource guide and mom/baby guide. is skin to skin. Mother works well with her with encouragement and education. Mother was encouraged to massage touch and change infants position to stimulate for . Encouraged understanding of the benefits of skin to skin (unwrapping and placing vertically on her chest), responsive feeding and how to watch for early feeding signs, frequency of feeding on demand about every 8-12 times in 24 hours (every 2-3 hours), milk production, duration of feeding, signs of adequate intake/output and how to record on the feeding sheet. Reviewed positioning and ear, shoulder, hip alignment, supporting the breast, asymmetrical latch (off-center), and leading with the chin with a big open side gape using the football position and a sandwich hold to the breast. Infant latched optimally to the left breast in football position for a few sucks, then fell asleep. The infant's tongue appears to be held tight with the sublingual frenulum. Encouraged mother to have a discussion with the Animal Keeper if there is pain with or if doesn't maintain latch. During the few sucks RN was able to education mother of how to visualize suck/swallow ratios and drinking at the breast. Nipple care reviewed with optimal latch and good positioning. Parents were taught the skills of hand expressing colostrum and infant was syringe fed the first milk with rewarding sucking on a gloved finger. Reviewed good handwashing when or touching the breast/nipples to prevent infection. Reviewed using the pie demonstration of how to know if their was getting enough and how hypoplasia may play a role in decreased milk production learning supply and demand frequently removing milk from the breast with effective , hand expression and/or pumping to encourage a milk supply. Resources used to facilitate learning were used with the tool and the mom/baby guide. Mother voiced understanding of responsive feedings, stimulating with skin to skin, hand expressed colostrum, touch, talking to infant to encourage if it has been 2 -3 hours since the start of the last , to call if does not latch or there is discomfort with . Reported to the primary RN.
--- NOTE | 2021-12-15 02:18 | PC.NURSE ---
Charlie Graf RN gave 3rd Bag of Gentamicin at 1400 on 12/14/21 but was not documented as such. Patient received all 4 bags of Gent.
[2021-12-15] MEDS: AMPICILLIN 1 GM/NS 50 ML 1 GM/50 ML BAG IVPB ×5 (03:03→22:00)
[2021-12-15] MEDS: IBUPROFEN 600 MG TABLET PO ×2 (03:31→21:58)
[2021-12-15 05:33] LABS: Hematocrit 26.1 % (37.0-47.0); Hemoglobin 8.5 g/dL (12.0-15.0)
--- NOTE | 2021-12-15 08:09 | PM.OBPNVD ---
OB - PN: Subj Subjective Date/time seen: 12/15/21 08:09 s/p vaginal delivery day 1 OB - PN: Obj Data Labs CBC & Chem 7: 12/15/21 03:39 12/12/21 07:05 Labs: Laboratory Results - last 24 hr 12/15/21 03:39 Hgb 8.5 L D Hct 26.1 L OB - PN A/P Plan day: 1 Plan: routine care Time Spent With Patient Time: Total time spent is greater than 50% in coordination of care (as documented) at patient's floor/unit and/or counseling patient: Review of Systems Review of Systems: All systems reviewed & are unremarkable except as noted in HPI and below Exam Const: General: cooperative, healthy appearing and comfortable
[2021-12-15 08:10] VITALS: BP 121/70; PULSE 82; RESP 16; TEMP 36.2; O2SAT 99
[2021-12-15] MEDS: POLYSACCHARIDE IRON COMPLEX 150 MG CAPSULE PO ×2 (09:08→16:45)
[2021-12-15] MEDS: MULTIVIT/MIN/PREN/FOL AC/IRON TABLET 1 TAB PO (09:09)
[2021-12-15] MEDS: DOCUSATE SODIUM 100 MG CAPSULE PO ×2 (09:09→16:45)
--- NOTE | 2021-12-15 11:47 | PC.NURSE ---
0842 Infant is at the desk. Reported to RN that infant is eating from the bottle now, mother breastfeeds, is on antibiotics, and mother is pumping.
--- NOTE | 2021-12-15 13:59 | WPDANLDPN2 ---
Anes-Prog Note L&D Date/Time: 12/15/21 13:59 Comfortable throughout: labor and delivery Neuraxial method: epidural Epidural/Spinal procedure site: clean & non-tender Neuro status: Neuro function grossly intact. Cardiovascular status: normal Respiratory status: normal Airway patency: baseline Mental status: baseline Post-Op hydration status: normal Vital Signs: Last Vital Signs Temp 97.2 F L 12/15/21 08:10 Pulse 82 12/15/21 08:10 Resp 16 12/15/21 08:10 BP 121/70 12/15/21 08:10 Pulse Ox 99 12/15/21 08:10 O2 Del Method Room Air 12/15/21 07:50 Pain score (VAS): 0 I/O: Intake & Output 12/14/21 12/15/21 12/15/21 23:59 07:59 15:59 Intake Total 602.5 50 290 Balance 602.5 50 290 Post-procedural complaints: none Patient feedback: Patient satisfied with anesthetic care.
[2021-12-15] MEDS: ACETAMINOPHEN 500 MG TABLET 1000 MG PO (16:44)
[2021-12-15 17:30] VITALS: BP 150/84; PULSE 79; RESP 16; TEMP 36.4; O2SAT 99
[2021-12-15 19:40] VITALS: BP 149/89; PULSE 93; RESP 18; TEMP 36.8
[2021-12-16] MEDS: AMPICILLIN 1 GM/NS 50 ML 1 GM/50 ML BAG IVPB (02:44)
--- NOTE | 2021-12-16 08:00 | PC.NURSE ---
PT introductions made and plan of care discussed per post , pain management, breast feeding, pumping and bottle feeding daily care activities and pending discharge to home. PT and spouse both received instructions this shift via one to one discussion, mom baby care guide and demonstrations. No barriers to learning identified at this time. PT verbalized understanding of such care.
[2021-12-16] MEDS: MULTIVIT/MIN/PREN/FOL AC/IRON TABLET 1 TAB PO (08:48)
[2021-12-16] MEDS: DOCUSATE SODIUM 100 MG CAPSULE PO (08:48)
[2021-12-16] MEDS: POLYSACCHARIDE IRON COMPLEX 150 MG CAPSULE PO (08:49)
[2021-12-16] MEDS: ACETAMINOPHEN 500 MG TABLET 1000 MG PO (08:49)
[2021-12-16] MEDS: IBUPROFEN 600 MG TABLET PO (08:51)
[2021-12-16 09:00] VITALS: BP 145/89; PULSE 90; RESP 18; TEMP 36.6; O2SAT 100
--- NOTE | 2021-12-16 13:33 | P.DS_ITS ---
DS: Admitting Diagnosis Discharge Date 12/16/21 Admitting Diagnosis term OB - DS: Summary OB Procedures : None OB Procedures Intrapartum: Spontaneous Vag Delivery OB Procedures: : Other (fever with abx) Time Spent with Patient Time attestation: Total time spent providing and/or coordinating discharge services: Discharge Plan Discharge Discharging Clinician: Jeanine Euceda Patient Disposition: Home, Self-Care Activity: pelvic rest Diet: regular Discharge Instructions: Education: Mom and Baby Guide Given to: Mother Follow-Up: Call your delivering provider's office for an appointment to be seen in: 4 Weeks Mom and baby should come to the [facility] for the follow-up appointment. Appointment Date/Time: December 18, 2021 at 10:00 am What to expect at your follow-up visit: Blood Pressure Check Call [phone] if you are unable to keep your appointment time. BREAST CARE: * Wear a snug supportive bra. * For engorgement discomfort: Breast Feeding: * Apply warm moist washcloths * Express milk as needed to relieve engorgement * Wear loose clothing Bottle Feeding: * May apply ice packs * For sore nipples: * Identify correct latch-on * Apply warm moist washcloths before and after nursing * Air dry nipples after nursing * May apply Lansinoh cream to nipples PERINEAL CARE: * Until bleeding stops, use your gavino bottle after urinating * Change your pad frequently throughout the day * You may take sitz baths several times a day (fill your bathtub with warm water and soak for 20 minutes.) Do NOT bathe in the water * No tub baths until seen by your physician - You may shower ACTIVITY: * Rest as much as possible. * Do not exercise or lift anything heavier than your baby (such as laundry or other children.) * Avoid stairs or driving as much as possible. * Do not put anything into the vagina. No douching, tampons, or sexual activity until seen by physician. NOTIFY PHYSICIAN IF YOU HAVE ANY QUESTIONS OR IF ANY OF THE FOLLOWING SYMPTOMS OCCUR: * If your perineum becomes red, swollen, or more painful than what you have experienced in the hospital. * If your vaginal bleeding becomes foul smelling. * If your vaginal bleeding becomes more heavy than a period or if your bleeding changes from pink to bright red. However, you may pass an occasional walnut- sized clot once or twice for the first week . * If you experience a sharp, shooting pain in you calves. * If you discover a hard, reddened area on your breast or if you experience flu- like symptoms. * If you have a fever if 100.4 or greater DIET: * Eat regular, well-balanced meals. * Drink plenty of fluids daily. If , drink to thirst. Patient Instructions: Antibiotic Form Stand Alone Forms: General Discharge Information Follow-up/Referrals: Jeanine Euceda MD [Physician] - Discharge Medications: Continued #2 Tablet 1 tablet PO HS Discontinued Adult Low Dose Aspirin 81 mg Tablet 162 mg PO DAILY Date of admission: 12/12/21 05:49 Primary Care Provider: John,Aydin Smith Admitting Provider: Samantha López Attending physician on admission: Samantha López. Condition: Stable
--- NOTE | 2021-12-16 13:37 | PM.OBPNVD ---
OB - PN: Subj Subjective Date/time seen: 12/16/21 13:37 Patient comments: no complaints, pain well controlled and tolerating diet OB - PN: Obj Data Labs CBC & Chem 7: 12/15/21 03:39 12/12/21 07:05 OB - PN A/P Plan day: 2 Plan: routine care and discharge home Time Spent With Patient Time: Total time spent is greater than 50% in coordination of care (as documented) at patient's floor/unit and/or counseling patient: Exam Const: General: comfortable and no acute distress Resp: Effort & Inspection: normal respiratory effort Auscultation: no rales, no rhonchi and no wheezes Cardio: Rate: regular rate Heart sounds: no click, no murmurs and no rubs GI: GI Palp: Yes Soft to palpation and No Tenderness to palpation present (GI) Auscultation: normal bowel sounds Extrem: General: normal to inspection, no pedal edema and no calf tenderness
--- NOTE | 2021-12-16 14:45 | PC.NURSE ---
Patient viewed the discharge video Mother & Baby Care, The First Two Weeks . Patient was given the opportunity and encouraged to ask questions. Patient verbalized understanding of information shared and has been given the mother/baby guide for home reference. PT received discharge instructions per protocol and verbalized understanding of such care.
--- NOTE | 2021-12-16 15:15 | PC.NURSE ---
PT discharged to home ambulatory accompanied by spouse and and taken to waiting car. Follow up appts confirmed
[2021-12-18 10:20] VITALS: BP 152/74; PULSE 72; RESP 20; TEMP 36.8; O2SAT 100
== END 2021-12-16 15:15 | disposition home or self-care (01) | DRG 806 ==
LOC: ANHLDR 12-14 07:21 → ANHOB2 12-16 07:29 → ANHLDR 12-19 13:32 → ANHOB2 12-19 13:32
PROVIDERS: Admitting Provider Obstetrics & Gynecology; PCP Internal Medicine; Visit Provider Obstetrics & Gynecology
DX: O10.92 Unspecified pre-existing hypertension complicating childbirth (principal); O75.2 Pyrexia during labor, not elsewhere classified; Z37.0 Single live birth; Z3A.39 39 weeks gestation of pregnancy; O36.8330 Maternal care for abnormalities of the fetal heart rate or rhythm, third trimester, not applicable or unspecified; O70.1 Second degree perineal laceration during delivery; O69.81X0 Labor and delivery complicated by cord around neck, without compression, not applicable or unspecified; O99.344 Other mental disorders complicating childbirth; F41.9 Anxiety disorder, unspecified
CPT/HCPCS: 36415; 80053; 84550; 85014; 85018; 85025; 85055; 86592; 86850; 86900; 86901; A9270; J0290; J1580; J2370; J2405; J2590; J2795; J7120

== ENCOUNTER 2022-02-18 02:36 | Observation (INO) | payer BC, SELFPAY ==
[2022-02-18] VITALS (24 sets, daily range): BP systolic 120–168; BP diastolic 70–100; PULSE 62–81; RESP 14–20; TEMP 36.2–36.8; O2SAT 95–100; BMI 38.7
--- NOTE | ~2022-02-18 | CT_ITS ---
EXAMINATION: CT abdomen pelvis w con DATE: 02/18/2022 03:50 INDICATION: Evaluate for cholecystitis. Abdominal pain. Nausea and vomiting. TECHNIQUE: Computed tomography (CT) of the abdomen and pelvis was performed with 100 cc Omnipaque 350 intravenous contrast. The dose-length product was 787.70 mGy-cm. Automated exposure control and iter ative reconstruction technique were employed. COMPARISON: None. FINDINGS: Lung bases are unremarkable. Heart size normal. No significant pleural or pericardial effus ion. No significant vascular abnormality. No lymphadenopathy. Nonobstructive bowel gas pattern. Darcy l appendix. Small fat-containing umbilical hernia. The liver, spleen, pancreas, adrenal glands and kidneys are unremarkable. Gallbladder wall is thicken ed with mild dilation of the common bile duct. No free air. There is a 1.9 cm cyst of the left ovary. IMPRESSION: 1. Thickened gallbladder wall with mild dilation of the common bile duct. Consider cholecystitis. Reviewed, dictated and finalized at location A. OT BUNCHER IMPRESSION: 1. Thickened gallbladder wall with mild dilation of the common bile duct. Consi snow cholecystitis.
--- NOTE | ~2022-02-18 | XR_ITS ---
EXAMINATION: XR cholangiogram surg 1st inj DATE: 02/19/2022 16:13 INDICATION: Intraoperative cholangiogram TECHNIQUE: 123 fluoroscopic images of the right upper quadrant were obtained during intraoperative ch olangiography performed by the surgeon. I was not present in the operating room. Fluoroscopy exposure time was 19.1 seconds. COMPARISON: CT and ultrasound from yesterday FINDINGS: There is mild enlargement of the common bile duct. No common bile duct stones or stricture are identified. IMPRESSION: 1. Mild enlargement of the common bile duct without evidence of common bile duct stone or stricture. This was communicated to Dr. Dawn in the operating room at 1557 hours on 02/19/2022. Reviewed, dictated and finalized at location B. AND MAXILLOFACIAL PATHOLOGIST IMPRESSION: 1. Mild enlargement of the common bile duct without evidence of common bile rick t stone or stricture. This was communicated to Dr. Dawn in the operating [place] m at 1557 hours on 02/19/2022.
--- NOTE | ~2022-02-18 | US_ITS ---
US abdomen limited INDICATION: Cholecystitis PROCEDURE: Realtime right upper abdominal ultrasound. COMPARISON: No prior studies for comparison. FINDINGS: The pancreas is normal without focal mass or pancreatic ductal dilation. Liver echotexture is normal without focal mass or intrahepatic biliary dilatation. There is normal directional flow i n the portal vein. There are gallstones with gallbladder sludge. Gallbladder wall is thickened. No pericholecystic fluid . Common bile duct measures 10 mm. No sonographic Genao's sign. IMPRESSION: 1: Cholelithiasis with gallbladder wall thickening and biliary dilatation. Findings compatible with c holecystitis. Reviewed, dictated and finalized at location A. D AND RELEASE MANAGER IMPRESSION: 1: Cholelithiasis with gallbladder wall thickening and biliary dilatation. Find ings compatible with cholecystitis.
[2022-02-18 02:50] LABS: Basophils Absolute Auto 0.1 K/mm3 (0.0-0.1); Basophils Percent Auto 0.7 % (0.2-1.2); Eosinophils Absolute Auto 0.2 K/mm3 (0-0.3); Eosinophils Percent Auto 1.6 % (0-4.4); Hematocrit 39.4 % (37.0-47.0); Immature Granulocyte Absolute 0.04 K/mm3 (0.00-0.031); Immature Granulocyte Percent A 0.4 % (0-0.5); Lymphocytes Absolute Auto 4.02 K/mm3 (0.9-3.2); Lymphocytes Percent Auto 42.8 % (18.3-44.2); Mean Corpuscular Hemoglobin 27.9 pg (26-34); Mean Corpuscular Volume 84.5 fl (80-100); Monocytes Absolute Auto 0.5 K/mm3 (0.1-0.6); Monocytes Percent Auto 5.4 % (2.6-8.5); Neutrophils Absolute Auto 4.6 K/mm3 (1.3-6.7); Neutrophils Percent Auto 49.1 % (45.5-73.1); Platelet Count Result 270 k/mm3 (150-375); Red Blood Count 4.66 M/mm3 (4.2-5.4); Red Cell Distribution Width 12.6 % (11.5-14.5); White Blood Count 9.4 K/mm3 (4.5-10.0)
[2022-02-18 02:56] LABS: Add Urine Microscopic? NO; Appearance Urine Clear (Clear); Bilirubin Urine Negative (Negative); Blood Urine Negative (Negative); Color Urine Yellow (Yellow); Glucose Urine UA Negative (Negative); Ketones Urine Negative (Negative); Leukocyte Esterase Ur Negative LEU/UL (Negative); Nitrate Urine Negative (Negative); Protein Urine Negative (Negative); Urobilinogen Urine 0.2 mg/dL (<2.0)
[2022-02-18 03:01] LABS: Alanine Aminotransferase 74 U/L (6-35); Albumin Level 4.5 g/dL (3.5-5.1); Alkaline Phosphatase 82 U/L (38-126); Anion Gap 10 mmol/L (8-16); Aspartate Amino Transferase 48 U/L (14-36); Bilirubin,Total 0.3 mg/dL (0.2-1.3); Blood Urea Nitrogen 13 mg/dL (7-17); Calcium 9.4 mg/dL (8.4-10.2); Carbon Dioxide 26 mmol/L (22-30); Chloride 102 mmol/L (98-107); Estimated Glomerular Filt Rate > 60; Glucose 124 mg/dL (65-110); Lipase 33 U/L (23-300); Potassium 3.9 mmol/L (3.4-5.0); Sodium 138 mmol/L (137-145)
--- NOTE | 2022-02-18 03:32 | ED.GENADULT ---
HPI - General Adult General Chief complaint: Abdominal Pain Stated complaint: abdominal pain Time Seen by Provider: 02/18/22 02:49 History of Present Illness HPI narrative: This is a 31-year-old female presenting ED with a chief complaint of abdominal pain. Patient says that the pain started at 8:00 p.m. while she was sleeping. It is a sharp crampy pain in the epigastric area and radiates to her back. 8 out of 10 intensity and constant. She has experience this 2 times in the last 2 months and is resolved on its own. There are no exacerbating or alleviating factors. She did take Gas-X with no relief. She has had 2 episodes of nausea and vomiting. She denies diarrhea, fever, chills, chest pain, difficulty breathing or urinary symptoms. Related Data Home Medications Medication Instructions Recorded Confirmed prenat.vits,stephanie,[id number] 1 tablet PO HS 11/29/21 11/29/21 Allergies Allergy/AdvReac Type Severity Reaction Status Date / Time latex Allergy Rash Verified 11/29/21 15:55 macadamia nut oil Allergy Swelling Verified 11/29/21 14:41 of Lip/Tongue/Throat peanut Allergy Swelling Verified 11/29/21 14:41 of Lip/Tongue/Throat PMFSH Past Medical History Medical History Chronic hypertension affecting Gestational hypertension Obesity and not yet delivered Family History Family History Father Hypertension Diabetes mellitus Grandparent Diabetes mellitus Social History Social History Smoking status: Never smoker Substance use: never Lack of Transportation: No Lack of Food: Never True Current Housing: I Have Housing Concerned About Future Housing: No Difficulty Paying Gas/Electric Bills: No Difficulty Paying for Meds: No Currently Unemployed: No Education: Decline to Answer Difficulty w/ Childcare or Family Care: No Spiritual care concerns: No Exam Narrative: APPEARANCE: No apparent distress. Head: atraumatic. EYES: EOMI, NOSE: Atraumatic NECK: Trachea midline RESPIRATORY: No increased rate of breathing CARDIOVASCULAR: RRR, ABDOMINAL: Abdomen is tender in the epigastric and right upper quadrant. No guarding or rebound. MUSCULOSKELETAl: No obvious deformities NEURO: Alert. Moving 4/4 extremities SKIN:: Warm, dry. Normal color PSYCHIATRIC: Normal affect Point of care right upper quadrant ultrasound showed a mildly distended gallbladder with posterior acoustic shadowing. The sonographic Genao's was negative. Gallbladder wall thickness was .5 cm. Course Vital Signs Vital signs: Vital Signs Temperature 98.2 F 02/18/22 02:45 Pulse Rate 81 02/18/22 02:45 Respiratory Rate 20 02/18/22 02:45 Blood Pressure 139/97 H 02/18/22 02:45 Pulse Oximetry 100 02/18/22 02:45 Temperature 98.2 F 02/18/22 02:45 Pulse Rate 75 02/18/22 04:50 Respiratory Rate 20 02/18/22 04:50 Blood Pressure 142/75 H 02/18/22 04:50 Pulse Oximetry 100 02/18/22 04:50 Medical Decision Making MDM Narrative Medical decision making narrative: This is a 31-year-old female presenting ED with epigastric and right upper quadrant altered pain. Point of care right upper quadrant ultrasound performed by myself showed hyperechoic areas in the gallbladder with posterior acoustic shadowing indicating gallstones. Thickened gallbladder wall at 5mm. CT abd/pelvis ordered to evaluate for cholecystitis. Patient given symptomatic treatment White blood cell count was 9.4. CMP was significant for a ALT of 74 and AST of 48. No elevations in lipase/ alk-phos. Urinalysis was not indicative of infection. CT abdomen pelvis showed: possible acute cholecystitis with gallbladder distention and wall thickening. Mildly dilated common bile duct measuring 7 mm. Case was discussed w
[2022-02-18] MEDS: MAG HYDROX/AL HYDROX/SIMETH 30 ML UDC PO (03:57)
[2022-02-18] MEDS: ONDANSETRON INJ 4 MG/2 ML VIAL IV PUSH ×2 (03:58→12:27)
[2022-02-18] MEDS: FAMOTIDINE 20 MG/2 ML VIAL IV PUSH (03:58)
[2022-02-18] MEDS: LORazepam INJ (*CRX) 2 MG/ML VIAL 0.5 MG IM (03:58)
[2022-02-18] MEDS: SODIUM CHLORIDE 0.9% IV 1,000 ML 999 ML IV CONT ×2 (03:59→04:22)
[2022-02-18] MEDS: HYDROmorphone HCL INJ (*CRX) 1 MG/ML SYR 0.5 MG IV PUSH ×2 (04:20→11:51)
[2022-02-18] MEDS: LACTATED RINGERS 1,000 ML 125 ML IV CONT (06:31)
[2022-02-18 07:54] LABS: Influenza A QL RT-PCR Negative (Negative); Influenza B QL RT-PCR Negative (Negative); SARS-CoV-2 RNA PCR Negative
--- NOTE | 2022-02-18 10:34 | ADMGEN ---
This patient, Bebe Hull, was admitted to 3 [facility] Surg Room 309-01. Patient/family oriented to hospital policies and general routines including ID bracelet, bed and alarms, visiting hours, pain management, procedures, bathroom and other care routines, personal items, smoking policy, room service/diet, and visiting hours. Information on how to activate the Rapid Response Team has been discussed. Patient/Family are encouraged to report perceived risks to care and to ask questions if they do not understand what they are told or what they should do.
--- NOTE | 2022-02-18 11:57 | PM.IMHP ---
H&P: HPI History of Present Illness Date/Time: 02/18/22 11:57 Chief Complaint: Epigastric and right upper quadrant pain Narrative: this is a 31-year-old woman presented to the emergency department this morning with epigastric pain. Her pain started last night after dinner and persisted for about 6 or 7 hours, therefore she decided to come into the emergency department for evaluation. She has had several episodes like this in the past 2 months since delivering her 1st child. Prior to that she had never experienced any symptoms like this before. She has not identified any particular foods cause the pain, and she states that she had some weight last night for dinner. She denies any fevers or chills. She was having nausea and vomiting with this. She states that her urine is a little darker yellow, but she denies tea-colored urine, jaundice, or scleral icterus. She denies any complications during her recent . She does have a family history of gallbladder problems. Since being admitted, her pain is still rated about a 4. She states that her pain was at about an 8 last night. Review of Systems Review of Systems: All systems reviewed & are unremarkable except as noted in HPI and below Constitutional: Constitutional: Denies chills and Denies fever(s) Eyes: Eyes: Denies change in vision ENT: Denies hearing loss, Denies neck pain and Denies sore throat Cardiovascular: Cardiovascular: Denies chest pain and Denies dyspnea Respiratory: Respiratory: Denies cough, Denies dyspnea and Denies wheezing Gastrointestinal: Gastrointestinal: Reports as per HPI Genitourinary: Genitourinary: Denies hematuria and Denies dysuria Musculoskeletal: Musculoskeletal: Denies arthralgias, Denies joint swelling and Denies neck pain Allergic/Immunologic: Allergic/Immunologic: Denies wheezing [facility] Past Medical History Medical History (Updated 02/18/22 @ 12:04 by Chas Dawn DO) Chronic hypertension affecting Gestational hypertension Obesity and not yet delivered Surgical History Surgical History (Updated 02/18/22 @ 12:00 by Chas Dawn DO) History of tonsillectomy and adenoidectomy Hx of foot surgery Hx of tympanostomy tubes Family History Family History Father Diabetes mellitus Hypertension Grandparent Diabetes mellitus Mother Thyroid cancer Social History Social History Smoking status: Never smoker Alcohol intake: never Substance use: never Substance use type: does not use Lack of Transportation: No Lack of Food: Never True Current Housing: I Have Housing Concerned About Future Housing: No Difficulty Paying Gas/Electric Bills: No Difficulty Paying for Meds: No Currently Unemployed: No Education: Associate Degree Difficulty w/ Childcare or Family Care: No Spiritual care concerns: No Meds Home Medications and Allergies Home Medications Medication Instructions Recorded Confirmed Type sertraline 50 mg tablet 50 mg PO DAILY 02/18/22 02/18/22 History Allergies Allergy/AdvReac Type Severity Reaction Status Date / Time latex Allergy Rash Verified 11/29/21 15:55 macadamia nut oil Allergy Swelling Verified 11/29/21 14:41 of Lip/Tongue/Throat peanut Allergy Swelling Verified 11/29/21 14:41 of Lip/Tongue/Throat Vital Signs Vital Signs - 24 hr 02/18/22 02:45 02/18/22 03:56 02/18/22 04:04 Temperature 36.8 C Pulse Rate 81 Respiratory Rate 20 Blood Pressure 139/97 H Pulse Oximetry 100 100 95 02/18/22 04:50 02/18/22 04:15 02/18/22 04:31 Temperature Pulse Rate 75 Respiratory Rate 20 Blood Pressure 142/75 H Pulse Oximetry 100 100 99 02/18/22 04:45 02/18/22 04:52 02/18/22 05:00 Temperature Pulse Rate Respiratory Rate Blood Pressure 142/75 H Pulse Oximetry 99
[2022-02-18] MEDS: LACTATED RINGERS 1,000 ML 75 ML IV CONT (18:02)
[2022-02-19] VITALS (12 sets, daily range): BP systolic 116–175; BP diastolic 74–99; PULSE 50–90; RESP 8–20; TEMP 36.2–37.1; O2SAT 95–100
[2022-02-19 06:22] LABS: Hematocrit 37.2 % (37.0-47.0); Hemoglobin 12.1 g/dL (12.0-15.0); Mean Corpuscular HGB Conc 32.5 g/dl (32-36); Mean Corpuscular Hemoglobin 28.1 pg (26-34); Mean Corpuscular Volume 86.3 fl (80-100); Mean Platelet Volume 12.4 fl (7.4-10.4); Platelet Count Result 217 k/mm3 (150-375); Red Blood Count 4.31 M/mm3 (4.2-5.4); Red Cell Distribution Width 12.8 % (11.5-14.5); White Blood Count 4.5 K/mm3 (4.5-10.0)
[2022-02-19 06:29] LABS: Alkaline Phosphatase 130 U/L (38-126); Anion Gap 3 mmol/L (8-16); Aspartate Amino Transferase 744 U/L (14-36); Bilirubin,Total 1.3 mg/dL (0.2-1.3); Blood Urea Nitrogen 7 mg/dL (7-17); Calcium 8.4 mg/dL (8.4-10.2); Carbon Dioxide 28 mmol/L (22-30); Chloride 104 mmol/L (98-107); Estimated CRCL calculation 109 ml/min; Estimated Glomerular Filt Rate > 60; Glucose 94 mg/dL (65-110); Lipase 49 U/L (23-300); Potassium 4.3 mmol/L (3.4-5.0); Sodium 135 mmol/L (137-145)
[2022-02-19 06:34] LABS: Alanine Aminotransferase 850 U/L (6-35)
[2022-02-19] MEDS: SERTRALINE HCL 50 MG TABLET PO (08:12)
[2022-02-19] MEDS: LACTATED RINGERS 1,000 ML 75 ML IV CONT (08:12)
[2022-02-19] MEDS: HYDROmorphone HCL INJ (*CRX) 1 MG/ML SYR 0.5 MG IV PUSH (08:17)
--- NOTE | 2022-02-19 14:04 | WPDANESEPPF ---
Anes - Initial Pre Proc Eval Procedure: Operation Date: 02/19/22 15:30 Proposed Procedures p Laparoscopic Cholecystectomy With Intraoperative Cholangiograms - Chas Dawn DO Date/Time: 02/19/22 14:04 Surgeon: Chas Dawn DO Pre Op Diagnosis: Cholecystitis Patient Data Age: 31 Gender: F Height: 1.57 m Weight: 96.2 kg Last Vital Signs Temp 36.2 C L 02/19/22 05:23 Pulse 60 02/19/22 05:23 Resp 14 02/19/22 05:23 BP 116/75 02/19/22 05:23 Pulse Ox 99 02/19/22 05:23 O2 Del Method Room Air 02/19/22 08:00 Allergies Allergy/AdvReac Type Severity Reaction Status Date / Time latex Allergy Rash Verified 11/29/21 15:55 macadamia nut oil Allergy Anaphylactic Verified 02/19/22 14:40 Shock peanut Allergy Swelling Verified 11/29/21 14:41 of Lip/Tongue/Throat Home Medications Medication Instructions Recorded Confirmed Type sertraline 50 mg tablet 50 mg PO DAILY 02/18/22 02/18/22 History Laboratory Tests 02/19/22 02/19/22 06:01 06:01 WBC 4.5 K/mm3 K/mm3 (4.5-10.0) RBC 4.31 M/mm3 M/mm3 (4.2-5.4) Hgb 12.1 g/dL g/dL (12.0-15.0) Hct 37.2 % % (37.0-47.0) MCV 86.3 fl fl (80-100) MCH 28.1 pg pg (26-34) MCHC 32.5 g/dl g/dl (32-36) RDW 12.8 % % (11.5-14.5) Plt Count 217 k/mm3 k/mm3 (150-375) MPV 12.4 fl H fl (7.4-10.4) Sodium 135 mmol/L L mmol/L (137-145) Potassium 4.3 mmol/L mmol/L (3.4-5.0) Chloride 104 mmol/L mmol/L (98-107) Carbon Dioxide 28 mmol/L mmol/L (22-30) Anion Gap 3 mmol/L L mmol/L (8-16) BUN 7 mg/dL D mg/dL (7-17) Creatinine 0.70 mg/dL mg/dL (0.7-1.0) Estim Creat Clear Calc 109 ml/min ml/min Estimated GFR > 60 (59 - ) Glucose 94 mg/dL mg/dL (65-110) Calcium 8.4 mg/dL mg/dL (8.4-10.2) Total Bilirubin 1.3 mg/dL mg/dL (0.2-1.3) AST 744 U/L H U/L (14-36) ALT 850 U/L H U/L (6-35) Alkaline Phosphatase 130 U/L H U/L (38-126) Total Protein 7.0 g/dL g/dL (6.3-8.2) Albumin 4.0 g/dL g/dL (3.5-5.1) Lipase 49 U/L U/L (23-300) Patient hx anesthesia problems: none Family hx anesthesia problems: none Results Review: All pre-operative results and documents have been reviewed as part of the pre-operative evaluation. [facility] Past Medical History Medical History (Updated 02/19/22 @ 14:06 by Artis Lynch DO) Anxiety Chronic hypertension affecting Depression Ectopic atrial pacemaker GERD (gastroesophageal reflux disease) Gestational hypertension Migraine Obesity and not yet delivered Surgical History Surgical History (Updated 02/18/22 @ 12:00 by Chas Dawn DO) History of tonsillectomy and adenoidectomy Hx of foot surgery Hx of tympanostomy tubes Family History Family History Father Diabetes mellitus Hypertension Grandparent Diabetes mellitus Mother Thyroid cancer Social History Social History Smoking status: Never smoker Alcohol intake: never Substance use: never Substance use type: does not use Lack of Transportation: No Lack of Food: Never True Current Housing: I Have Housing Concerned About Future Housing: No Difficulty Paying Gas/Electric Bills: No Difficulty Paying for Meds: No Currently Unemployed: No Education: Associate Degree Difficulty w/ Childcare or Family Care: No Spiritual care concerns: No Anes - Eval Final PreProcedure Day of Procedure 02/19/22 14:04 Patient weight: obese Heart: regular rate and rhythm Lungs: clear to auscultation Airway: Mallampati scale class II Neurological: alert and oriented Last oral intake: >/= 8 hours ASA classification: III Emergent: no Anesthetic plan: p
[2022-02-19] MEDS: LACTATED RINGERS 1,000 ML 30 ML IV CONT ×2 (14:45→16:28)
--- NOTE | 2022-02-19 14:58 | WPDHPUPDATE1 ---
History and Physical Update Update Date/Time: 02/19/22 14:58 History and Physical has been reviewed, including an updated exam of the patient. There are NO changes in the patient's condition. Risks, benefits, and alternatives have been discussed and questions answered. Patient agrees to proceed with procedure.
[2022-02-19] MEDS: BUPIVACAINE/EPINEPHRINE 0.5% 10 ML VIAL 30 ML INFILTRATE (15:36)
--- NOTE | 2022-02-19 16:21 | W.PM.PROC2 ---
Procedure Note - Detailed Date of Procedure 02/19/22 Pre-op Diagnosis Acute calculous cholecystitis, elevated liver enzymes Post-op Diagnosis Same Procedure Performed Laparoscopic Cholecystectomy with intraoperative cholangiogram Surgeon Chas Dawn, DO Anesthesia General and Local (0.5% bupivacaine) Indications This is a 31-year-old woman who presented to the emergency department yesterday with epigastric and right upper quadrant pain that started the night before. She has been having occasional pains like this since delivering her baby 2 months ago. She denied any jaundice or any dark urine. In the emergency department she had a CT which showed evidence of acute calculous cholecystitis. Her liver enzymes were slightly elevated and imaging also showed a dilated common bile duct. She was admitted for further treatment and the following morning her liver enzymes were elevated even further. Discussions were made with the patient about treatment options and decision was made to proceed with laparoscopic cholecystectomy with cholangiogram. Findings Laparoscopic cholecystectomy was performed. The gallbladder had some edema and wall thickening. The cystic duct appeared normal in size. There were several small stones within the neck of the gallbladder and cystic duct just beyond the gallbladder. I was able to perform an intraoperative cholangiogram with the catheter placed just beyond where the stones were noted. Omnipaque contrast was used with fluoroscopy to obtain the cholangiogram did not appear to be any filling defects within biliary tree. It is the gallbladder was removed and sent to the lab for pathology. Upon opening the gallbladder there appeared to be thousands of tiny granules of gallstones some small gallstones. Description of Procedure Procedure as well as risks, benefits, and alternatives were discussed with patient. Written consent was obtained and placed in chart prior to procedure. The patient was brought back to surgical suite. Patient was placed in supine position on operating table. Time-out was done to confirm patient and procedure. Patient was then intubated by the anesthesia department. Abdomen was prepped and draped in sterile fashion using chlorhexidine prep. 0.5% bupivacaine with epinephrine was infiltrated at each site of incision. A 5 millimeter incision was made near the umbilicus, and a 5 millimeter Optiview trocar was advanced through the abdominal layers under direct visualization. Once inside the abdominal cavity, carbon dioxide was insufflated to create a pneumoperitoneum. The camera was inserted and the abdomen was inspected. No immediate abnormalities were identified. The patient was placed in reverse Trendelenburg position and rotated slightly to the left. An 11 millimeter incision was made in the subxiphoid region, and an 11 millimeter trocar was inserted under direct visualization. Two 5 millimeter incisions were made in the right upper quadrant, and two 5 millimeter trocars were inserted under direct visualization. The gallbladder was identified and grasped at the fundus and retracted superiorly. It was then grasped at the infundibulum retracted laterally. Careful dissection around the neck of the gallbladder was performed using blunt dissection with a [place] grasper and hook electrocautery. The cystic duct was identified, and a window was created behind it. The cystic artery was also identified and a window was created behind it. The critical view of safety was identified, visualizing the cystic duct running directly into the neck of the gallbladder, and the cystic artery running directly into the wall of the gallbladder. A 5 millimeter clip flexo press operator was then used to place 2 clips proximally and 1 clip distally on the cystic artery. It was then transected using endoscopic scissors. The Vyas clamp was then placed across the cystic duct and the Vyas cholangiocatheter was advanced into the cystic duct. Bi
[2022-02-19] MEDS: SCOPOLAMINE 1.5 MG PATCH TRANSDERM (16:44)
[2022-02-19] MEDS: diphenhydrAMINE HCl INJ 50 MG/ML VIAL 12.5 MG IV PUSH (16:45)
[2022-02-19] MEDS: PROPOFOL IV EMULSION 200 MG/20 ML VIAL 50 MG IV PUSH (16:53)
[2022-02-19] MEDS: HYDROcodone/acetaminophen (*CRX) 5-325 MG TABLET 1 TAB PO (18:39)
[2022-02-19] MEDS: LACTATED RINGERS 1,000 ML 100 ML IV CONT (18:43)
[2022-02-20] MEDS: HYDROcodone/acetaminophen (*CRX) 5-325 MG TABLET 1 TAB PO ×2 (00:43→08:07)
[2022-02-20 03:27] VITALS: BP 134/74; PULSE 51; RESP 18; TEMP 36.4; O2SAT 99
[2022-02-20 07:04] LABS: Hematocrit 34.8 % (37.0-47.0); Hemoglobin 11.2 g/dL (12.0-15.0); Mean Corpuscular HGB Conc 32.2 g/dl (32-36); Mean Corpuscular Hemoglobin 27.8 pg (26-34); Mean Corpuscular Volume 86.4 fl (80-100); Mean Platelet Volume 12.4 fl (7.4-10.4); Platelet Count Result 227 k/mm3 (150-375); Red Blood Count 4.03 M/mm3 (4.2-5.4); Red Cell Distribution Width 12.6 % (11.5-14.5); White Blood Count 7.6 K/mm3 (4.5-10.0)
[2022-02-20 07:15] LABS: Alanine Aminotransferase 493 U/L (6-35); Albumin Level 3.6 g/dL (3.5-5.1); Alkaline Phosphatase 124 U/L (38-126); Anion Gap 5 mmol/L (8-16); Aspartate Amino Transferase 187 U/L (14-36); Bilirubin,Total 0.5 mg/dL (0.2-1.3); Blood Urea Nitrogen 8 mg/dL (7-17); Calcium 8.4 mg/dL (8.4-10.2); Carbon Dioxide 28 mmol/L (22-30); Chloride 104 mmol/L (98-107); Estimated CRCL calculation 96 ml/min; Estimated Glomerular Filt Rate > 60; Glucose 89 mg/dL (65-110); Potassium 3.9 mmol/L (3.4-5.0); Sodium 137 mmol/L (137-145)
[2022-02-20 07:27] VITALS: BP 147/105; PULSE 52; RESP 20; TEMP 36.1; O2SAT 100
--- NOTE | 2022-02-20 07:30 | WPDANESPN ---
Anes - Prog Note Post-Op Date/Time: 02/20/22 07:30 Cardiovascular status: normal Respiratory status: normal Airway patency: baseline Mental status: baseline Post-Op hydration status: normal Vital Signs: Last Vital Signs Temp 97.6 F 02/20/22 03:27 Pulse 51 L 02/20/22 03:27 Resp 18 02/20/22 03:27 BP 134/74 02/20/22 03:27 Pulse Ox 99 02/20/22 03:27 O2 Del Method Room Air 02/19/22 20:00 O2 Flow Rate 8 02/19/22 16:55 Pain Score (VAS): 2 I/O: Intake & Output 02/19/22 02/19/22 02/20/22 15:59 23:59 07:59 Intake Total 490 550 500 Output Total 2300 Balance 490 -1750 500 Laboratory Tests 02/20/22 06:43 02/20/22 06:43 02/20/22 02/20/22 06:43 06:43 WBC 7.6 RBC 4.03 L Hgb 11.2 L Hct 34.8 L MCV 86.4 MCH 27.8 MCHC 32.2 RDW 12.6 Plt Count 227 MPV 12.4 H Sodium 137 Potassium 3.9 Chloride 104 Carbon Dioxide 28 Anion Gap 5 L BUN 8 Creatinine 0.80 Estim Creat Clear Calc 96 Estimated GFR > 60 Glucose 89 Calcium 8.4 Total Bilirubin 0.5 AST 187 H ALT 493 H Alkaline Phosphatase 124 Total Protein 6.0 L Albumin 3.6 Patient Feedback: Patient satisfied with anesthetic care.
[2022-02-20] MEDS: SERTRALINE HCL 50 MG TABLET PO (08:07)
--- NOTE | 2022-02-20 12:07 | PM.PNGS ---
Progress Note: A&P Assessment and Plan (1) Acute calculous cholecystitis: Code(s): K80.00 - Calculus of gallbladder with acute cholecystitis without obstruction Status: Acute Assessment and Plan: Post-op day 1 and doing well. P ain is well controlled and she is tolerating a diet. She is stable for discharge today. F/u with Dr. Dawn in 2 weeks. (2) Elevated liver enzymes: Code(s): R74.8 - Abnormal levels of other serum enzymes Status: Acute Assessment and Plan: Trending down. (3) Elevated blood pressure reading: Code(s): R03.0 - Elevated blood-pressure reading, without diagnosis of hypertension Status: Acute Plan I have discussed the patient's case and plan of care with Dr. Dawn. Subjective Subjective Date/Time Seen: 02/20/22 10:07 Post Op day: 1 (laparoscopic cholecystectomy with IOC) Patient reports: no new complaints, feels better and voiding w/o difficulty Interval history: Patient feeling well this morning. She had some issues with pain control yesterday evening after surgery, but this has quickly improved. She is now tolerating a low fat diet. Her pain is well-controlled with oral analgesics. She is ambulating and tolerating this well. No other complaints at this time. Review of Systems Review of Systems: All systems reviewed & are unremarkable except as noted in HPI and below Exam Const: General: comfortable, no acute distress and awake Orientation/consciousness: patient oriented x3 GI: Inspection: non-distended and incision (incisions dry and intact) GI Palp: Yes Soft to palpation and Yes Tenderness to palpation present (GI) (incisional) Auscultation: normal bowel sounds Neuro: General: moves all extremities and no focal motor deficits Extrem: General: no calf tenderness and no edema Psych: Mental Status: mental status grossly normal Insight: Good insight present (Psych) Objective Data Vital Signs Vital Signs: Vital Signs - 24 hr 02/19/22 14:00 02/19/22 14:58 02/19/22 16:28 Temperature 97.6 F 98.7 F 97.5 F L Pulse Rate 75 82 90 Respiratory Rate 18 16 20 Blood Pressure 146/75 H 150/86 H 175/89 H Pulse Oximetry 98 99 100 Oxygen Delivery Room Air Simple Face Mask Oxygen Flow Rate 8 02/19/22 16:40 02/19/22 16:55 02/19/22 17:10 Temperature Pulse Rate 77 50 L 57 L Respiratory Rate 14 16 20 Blood Pressure 159/87 H 154/86 H 142/78 H Pulse Oximetry 100 100 98 Oxygen Delivery Simple Face Mask Simple Face Mask Room Air Oxygen Flow Rate 8 8 02/19/22 17:25 02/19/22 17:40 02/19/22 18:15 Temperature 97.6 F Pulse Rate 62 69 74 Respiratory Rate 8 L 12 18 Blood Pressure 145/85 H 147/74 H 153/97 H Pulse Oximetry 95 98 98 Oxygen Delivery Room Air Room Air Oxygen Flow Rate 02/19/22 19:27 02/19/22 20:00 02/19/22 23:27 Temperature 97.5 F L 97.3 F L Pulse Rate 80 61 Respiratory Rate 18 18 Blood Pressure 151/99 H 138/80 Pulse Oximetry 99 97 Oxygen Delivery Room Air Oxygen Flow Rate 02/20/22 03:27 02/20/22 07:27 02/20/22 08:00 Temperature 97.6 F 97.0 F L Pulse Rate 51 L 52 L Respiratory Rate 18 20 Blood Pressure 134/74 147/105 H Pulse Oximetry 99 100 Oxygen Delivery Room Air Oxygen Flow Rate Intake/Output Intake/Output: Intake & Output 02/17/22 02/18/22 02/19/22 02/20/22 23:59 23:59 23:59 23:59 Intake Total 4210 3140 2286 Output Total 2700 2300 Balance 6049 022 5075 Meds/Results Medications: Active Medications Generic Name Dose Route Start Last Admin Trade Name Freq PRN Reason Stop Dose Admin Acetaminophen 650 mg 02/19/22 17:42 Acetaminophen 325 Mg Tablet PO Q6H PRN Mild Pain (1-3) or Fever Hydrocodone Bitart/Acetaminophen 1 tab 02/19/22 17:42 02/20/22 08:07 Hydrocodone/Acetaminophen (*Crx) 5-325 Mg Tablet PO 1 tab Q4H PRN Administration Pain Rated 4-6 Hydrocodone Bitart/Acetaminophen 1 tab 02/19/22 17:42 Hydrocodone/Ac
--- NOTE | 2022-02-20 12:45 | PM.DS ---
DS: Admitting Diagnosis Discharge Date 02/20/22 Admitting Diagnosis Acute calculous cholecystitis Elevated liver enzymes Elevated blood pressure reading. DS: Discharge Diagnosis Discharge Diagnosis (1) Acute calculous cholecystitis: Code(s): K80.00 - Calculus of gallbladder with acute cholecystitis without obstruction Status: Acute Assessment and Plan: 02/19/22 - Laparoscopic cholecystectomy with Intraoperative cholangiogram - by Dr. Dawn (2) Elevated liver enzymes: Code(s): R74.8 - Abnormal levels of other serum enzymes Status: Acute (3) Elevated blood pressure reading: Code(s): R03.0 - Elevated blood-pressure reading, without diagnosis of hypertension Status: Acute DS: Summary Hospital Course Reason for hospitalization: This is a 31-year-old woman who presented to the emergency department on 02/18/22 with epigastric pain x 6-7 hours.? Her pain started after dinner the night before. She had associated nausea and vomiting, and then presented to the ER. Workup showed evidence of acute cholecystitis with cholelithiasis with a dilated common bile duct. Labs showed elevated LFTs. She was admitted for surgical evaluation. Hospital Course: The patient continued to have abdominal pain and decision was made to proceed with surgery. She was taken to the OR for a laparoscopic cholecystectomy with IOC by Dr. Dawn on 02/19/22. She was found to have many small stones within the neck of the gallbladder and cystic duct just beyond the gallbladder. The IOC was performed with the catheter just beyond where the stones were located and did not show any filling defects within the biliary tree. Following surgery, she was kept overnight with some issues of pain control following surgery. She was advanced to a low fat diet and tolerated this well. She was taking analgesics as needed and by the following morning, her post-op pain was well controlled with oral analgesics. She did have high blood pressure readings when admitted. Hydralazine IV was ordered as needed, but was never required. She did have high blood pressure during her recent . This was likely related to pain and improved by the morning after surgery. Her blood pressure was stable prior to discharge. She was instructed to follow-up with her PCP for blood pressure check. This morning she is doing well and stable for discharge. We will have her follow-up with Dr. Dawn in 2 weeks. Status at Discharge Functional status at discharge: independent ambulation Overall status at discharge: patient is progressing back to baseline Time Spent with Patient Time attestation: Total time spent providing and/or coordinating discharge services: Time spent: Less than 30 minutes DS: Data Data Completed and Pending Pending studies at discharge: Pending at discharge 02/19/22 16:01 Surgical [PTH] Routine Labs on day of discharge: Labs from last 24 hours 02/20/22 02/20/22 06:43 06:43 WBC 7.6 RBC 4.03 L Hgb 11.2 L Hct 34.8 L MCV 86.4 MCH 27.8 MCHC 32.2 RDW 12.6 Plt Count 227 MPV 12.4 H Sodium 137 Potassium 3.9 Chloride 104 Carbon Dioxide 28 Anion Gap 5 L BUN 8 Creatinine 0.80 Estim Creat Clear Calc 96 Estimated GFR > 60 Glucose 89 Calcium 8.4 Total Bilirubin 0.5 AST 187 H ALT 493 H Alkaline Phosphatase 124 Total Protein 6.0 L Albumin 3.6 Procedures/Treatments: Procedures Operation Date: 02/19/22 15:30 Actual Procedure Side Surgeon p Laparoscopic Cholecystectomy With Intraoperative Cholangiograms Not Applicable Chas Dawn, DO Imaging Radiologist's impression: ITS Impressions Abdomen/Pelvis CT 02/18/22 07:35 IMPRESSION: 1. Thickened gallbladder wall with mild dilation of the common bile duct. Consider cholecystitis. Abdomen Ultrasound 02/18/22 08:48 IMPRESSION: 1: Cholelithiasis with gallbladder wall thickening and biliary dilatatio
== END 2022-02-20 12:20 | disposition home or self-care (01) ==
LOC: ANHED 06:25 → ANH3MEDSUR 09:08
PROVIDERS: Admitting Provider Surgery; Emergency Provider Emergency Medicine; PCP Internal Medicine; Visit Provider Surgery
PROC: 0FT44ZZ Resection of Gallbladder, Percutaneous Endoscopic Approach (ICD-10-PCS; CPT 47562; principal; 2022-02-19 15:30)
DX: K80.12 Calculus of gallbladder with acute and chronic cholecystitis without obstruction (principal); R74.8 Abnormal levels of other serum enzymes; R03.0 Elevated blood-pressure reading, without diagnosis of hypertension; E66.9 Obesity, unspecified; Z68.38 Body mass index [BMI] 38.0-38.9, adult; Z20.822 Contact with and (suspected) exposure to COVID-19; Z79.899 Other long term (current) drug therapy
CPT/HCPCS: 47563; 36415; 74177; 74300; 76705; 80053; 81003; 81025; 83690; 85025; 85027; 87636; 88304; 96361; 96365; 96366; 96367; 96372; 96375; 96376; 99285; A9270; G0378; J0131; J1100; J1170; J1200; J2060; J2250; J2405; J2543; J2704; J2710; J3010; J7030; J7120; Q9966; Q9967